=== PATIENT | female | born 1980 ===

== ENCOUNTER 2016-09-20 15:13 | Emergency (ER) | payer MEDICAID ==
--- NOTE | 2016-09-20 15:44 | ED PDOC ---
HPI: General Adult Time Seen by Provider: 09/20/16 15:35 Chief Complaint (Provider): abdominal pain History Per: Patient History/Exam Limitations: no limitations Additional Complaint(s): 36yo female complaining of abdominal pain for 5 days. No fever, nausea, vomit. Pain is constant. She has not taken any medicine. No shortness of breath, cough. Worse with movement. Pt in ED with son who is being evaluated for fever. Past Medical History Reviewed: Historical Data, Nursing Documentation, Vital Signs Vital Signs: Last Vital Signs Temp 98.4 F 09/20/16 15:57 Pulse 68 09/20/16 15:57 Resp 18 09/20/16 15:57 BP 95/52 L 09/20/16 15:57 Pulse Ox 99 09/20/16 15:57 - Medical History PMH: No Chronic Diseases - Surgical History Surgical History: No Surg Hx - Family History Family History: States: Unknown Family Hx - Living Arrangements Living Arrangements: With Family - Social History Current smoker - smoking cessation education provided: No Drugs: Denies - Home Medications Home Medications: Ambulatory Orders Medication Instructions Recorded Naproxen [Naprosyn] 500 mg PO BID PRN #15 tablet 09/20/16 - Allergies Allergies/Adverse Reactions: Allergies Allergy/AdvReac Type Severity Reaction Status Date / Time No Known Allergies Allergy Verified 09/16/14 16:50 Review of Systems ROS Statement: Except As Marked, All Systems Reviewed And Found Negative Constitutional: Negative for: Fever Respiratory: Negative for: Cough, Shortness of Breath Gastrointestinal: Positive for: Abdominal Pain. Negative for: Nausea, Vomiting , Diarrhea Physical Exam - Reviewed Nursing Documentation Reviewed: Yes Vital Signs Reviewed: Yes - Physical Exam Appears: Positive for: Well, Non-toxic, No Acute Distress Head Exam: Positive for: ATRAUMATIC, NORMAL INSPECTION, NORMOCEPHALIC Skin: Positive for: Warm, Dry Eye Exam: Positive for: EOMI, PERRL Cardiovascular/Chest: Positive for: Regular Rate, Rhythm, Other (Minimal right anterior rib pain) Respiratory: Positive for: Normal Breath Sounds. Negative for: Rales, Rhonchi, Wheezing Gastrointestinal/Abdominal: Positive for: Normal Exam, Soft. Negative for: Tenderness Extremity: Positive for: Normal ROM Disposition - Clinical Impression Clinical Impression: Rib pain on right side - Disposition Disposition: Routine/Home Disposition Time: 19:00 Condition: IMPROVED Additional Instructions: FOLLOW-UP WITH PMD WITHIN 2 DAYS FOR REEVALUATION. Prescriptions: Naproxen [Naprosyn] 500 mg PO BID PRN #15 tablet PRN Reason: Pain, Moderate (4-7) Instructions: Musculoskeletal Pain (ED) Print Language: ARMENIAN Additional Comments - Additional Comments Additional Comments: Scribe Attestation: Documented by Kun Marin acting as a scribe for Cherise Rae MD. Provider Scribe Attestation: All medical record entries made by the Scribe were at my direction and personally dictated by me. I have reviewed the chart and agree that the record accurately reflects my personal performance of the history, physical exam, medical decision making, and the department course for this patient. I have also personally directed, reviewed, and agree with the discharge instructions and disposition.
[2016-09-20 16:10] VITALS: BP 95/52; PULSE 68; RESP 18; TEMP 98.4; O2SAT 99; BMI 20.5
--- NOTE | 2016-09-20 20:03 | RAD ---
EXAM: XR Right Ribs and AP Chest, 3 or More Views CLINICAL HISTORY: 36 years old, female; Pain; Chest wall pain; Right; Additional info: R anterior rib pain TECHNIQUE: Frontal and oblique views of the right ribs and frontal view of the chest. EXAM DATE/TIME: 09/20/2016 4:02 PM COMPARISON: No relevant prior studies available. FINDINGS: LUNGS: Lungs are well-inflated, and appear clear radiographically, without evidence of focal consolidation/infiltrate or pulmonary vascular congestion. PLEURAL SPACE: No pneumothorax or pleural effusions seen. HEART: Heart does not appear significantly enlarged. MEDIASTINUM: Mediastinal contour is within normal limits. BONES/JOINTS: No acute fractures are seen radiographically. IMPRESSION: - No acute radiographic abnormality identified. - See above for remaining findings.
== END 2016-09-20 20:15 | disposition home or self-care (01) ==
LOC: H.ER 15:13
DX: R10.9 Unspecified abdominal pain (principal); R07.89 Other chest pain; R07.81 Pleurodynia